=== PATIENT | male | born 1975 | race Caucasian/White ===

== ENCOUNTER 2019-03-03 15:38 | Emergency (ER) | payer BC, SELFPAY ==
[2019-03-03 15:53] VITALS: BP 105/57; PULSE 89; RESP 18; TEMP 37.1; O2SAT 98; BMI 24.4
[2019-03-03 16:07] LABS: UTC Influenza A Antigen Negative (Negative); UTC Influenza B Antigen Negative (Negative); UTC Strep Screen (Rapid) Negative (Negative)
--- NOTE | 2019-03-03 16:07 | HMH.EDUTC ---
[facility] [place] Disposition Clinical Impression: At high risk for tick borne illness Disposition: Home, Self-Care Condition on Discharge: Good Instructions: How to Remove a Tick, DI for Fever (Symptom) -- Adult, DI for Lyme Disease, Lyme Disease, Doxycycline Additional Instructions: Take antibiotics as prescribed for length of time prescribed *Watch bite area for what is called bullseye rash which has red area in the center with white surrounding venetie ira like area surrounded by another red area that looks like a bullseye *if you go out in the [place] or high weeds make sure to spray shoes and pant legs to help prevent further tick bites *Make sure to check yourself well for ticks when coming in from the [place] Return if needed Follow up with family doctor if no improvement or any worsening of symptoms Straight to ER if any life threatening of symptom Make sure that you are drinking plenty of fluids and get plenty of rest over the next couple days Prescriptions: Doxycycline Monohydrate [Doxycycline [place] 100mg Tab] 100 mg PO BID 10 Days #20 tab Referrals: Archie Chapman MD [Primary Care Provider] - Forms: Work/School Release Time of Disposition: 16:37 Medical Decision Making - Yossi Inquiry Pt receiving controlled substance: No Yossi was queried for this patient: No Vital Signs: 03/03/19 15:53 Temperature 98.7 F Temperature Source Oral Pulse Rate [Right Apical] 89 Respiratory Rate 18 Blood Pressure [Right Arm] 105/57 L Blood Pressure Mean [Right Arm] 73 02 Sat by Pulse Oximetry 98 Oxygen Delivery Method Room Air - Lab Data Lab results reviewed: Yes: I reviewed the patient's lab results. [facility] HPI - General Stated complaint: Possible flu,or tick bite Time Seen by Provider: 03/03/19 16:07 Mode of Arrival: Ambulatory Source of Information: Patient Limitations: No Limitations Description of Symptoms (Recalled from Triage Doc. by RN): PT C/O FEVER, CHILLS AND NAUSEA HEENT Symptoms (Recalled from RN notes): No Resp Symptoms (Recalled from RN notes): No Skin Symptoms (Recalled from RN notes): No MS Symptoms (Recalled from RN notes): No Functional Status (Recalled from RN notes): N/A - History of Present Illness Provider Complaint: Patient complaining of flu like symptoms fever, chills, body aches and sore throat State that he got 2 ticks off of him last Sunday but hasn't had any swelling or rash of tick bite sites State that he does have small red raised area on his left buttock area where he removed one of the ticks. State that on Sunday he started having fever, chills, sore throat and over all feeling bad States that he has continued to get worse State that fever has been as high as 102.0 - Related Data Previous Rx's Medication Instructions Recorded Doxycycline Monohydrate 100 mg PO BID 10 Days #20 tab 03/03/19 [Doxycycline Adair 100mg Tab] Allergies Allergy/AdvReac Type Severity Reaction Status Date / Time No Known Allergies Allergy Verified 03/03/19 15:55 - Worker's Comp Is this a Worker's Comp case?: No [facility] History - Hepatitis A Screen Drug use history?: No High risk sexual behaviors?: No History of sexually transmitted infection?: No Currently employed?: No Childcare worker?: No Do you have indoor plumbing?: Yes Do you have electricity?: Yes Attestation statement:: This patient has been screened for Hepatitis A risk factors. I have reviewed the patient's past medical history: Yes - Social History Alcohol Intake: never Occupational Status: employed - Psychiatric History Expresses thoughts of harming self/others: None Suicide Plan Description: No Plan ROS Obtained: Yes All systems reviewed & no additional complaints, Yes Systems reviewed as appropriate & no additional complaints - Constitutional Constitutional: Reports body ache, Reports chills, Reports fatigue, Reports fever(s), Reports headache(s) - Gastrointestinal Gastrointestingal: Reports: nausea Physical
--- NOTE | 2019-03-03 16:21 | ED_ITS ---
[facility] [place] Disposition Clinical Impression: At high risk for tick borne illness Disposition: Home, Self-Care Condition on Discharge: Good Instructions: How to Remove a Tick, DI for Fever (Symptom) -- Adult, DI for Lyme Disease, Lyme Disease, Doxycycline Additional Instructions: Take antibiotics as prescribed for length of time prescribed *Watch bite area for what is called bullseye rash which has red area in the center with white surrounding cachil dehe like area surrounded by another red area that looks like a bullseye *if you go out in the [place] or high weeds make sure to spray shoes and pant legs to help prevent further tick bites *Make sure to check yourself well for ticks when coming in from the [place] Return if needed Follow up with family doctor if no improvement or any worsening of symptoms Straight to ER if any life threatening of symptom Make sure that you are drinking plenty of fluids and get plenty of rest over the next couple days Prescriptions: Doxycycline Monohydrate [Doxycycline [place] 100mg Tab] 100 mg PO BID 10 Days #20 tab Referrals: Archie Chapman MD [Primary Care Provider] - Forms: Work/School Release Time of Disposition: 16:37 Medical Decision Making - Yossi Inquiry Pt receiving controlled substance: No Yossi was queried for this patient: No Vital Signs: 03/03/19 15:53 Temperature 98.7 F Temperature Source Oral Pulse Rate [Right Apical] 89 Respiratory Rate 18 Blood Pressure [Right Arm] 105/57 L Blood Pressure Mean [Right Arm] 73 02 Sat by Pulse Oximetry 98 Oxygen Delivery Method Room Air - Lab Data Lab results reviewed: Yes: I reviewed the patient's lab results. [facility] [place] HPI - General Stated complaint: Possible flu,or tick bite Time Seen by Provider: 03/03/19 16:07 Mode of Arrival: Ambulatory Source of Information: Patient Limitations: No Limitations Description of Symptoms (Recalled from Triage Doc. by RN): PT C/O FEVER, CHILLS AND NAUSEA HEENT Symptoms (Recalled from RN notes): No Resp Symptoms (Recalled from RN notes): No Skin Symptoms (Recalled from RN notes): No MS Symptoms (Recalled from RN notes): No Functional Status (Recalled from RN notes): N/A - History of Present Illness Provider Complaint: Patient complaining of flu like symptoms fever, chills, body aches and sore throat State that he got 2 ticks off of him last Sunday but hasn't had any swelling or rash of tick bite sites State that he does have small red raised area on his left buttock area where he removed one of the ticks. State that on Sunday he started having fever, chills, sore throat and over all feeling bad States that he has continued to get worse State that fever has been as high as 102.0 - Related Data Previous Rx's Medication Instructions Recorded Doxycycline Monohydrate 100 mg PO BID 10 Days #20 tab 03/03/19 [Doxycycline [place] 100mg Tab] Allergies Allergy/AdvReac Type Severity Reaction Status Date / Time No Known Allergies Allergy Verified 03/03/19 15:55 - Worker's Comp Is this a Worker's Comp case?: No [facility] History - Hepatitis A Screen Drug use history?: No High risk sexual behaviors?: No History of sexually transmitted infection?: No Currently employed?: No Childcare worker?: No Do you have indoor plumbing?: Yes Do you have electricity
[2019-03-03 16:38] VITALS: BP 126/66; PULSE 65; RESP 18; TEMP 36.6; O2SAT 100
== END 2019-03-03 16:41 | disposition home or self-care (01) ==
PROVIDERS: Emergency Provider Nurse Practitioner; PCP Family Medicine
DX: S30.860A Insect bite (nonvenomous) of lower back and pelvis, initial encounter (principal)
CPT/HCPCS: 87804; 87880; 99201; 99202

== ENCOUNTER → 2020-02-19 08:19 | Outpatient (CLI) | payer BC, SELFPAY ==
--- NOTE | 2020-02-19 08:29 | US_ITS ---
PROCEDURE: US ABDOMEN LIMITED CLINICAL INDICATION: ABD PAIN Right upper quadrant pain, right-sided pain COMPARISON: No exams were available for comparison FINDINGS: PANCREAS: Pancreas is slightly hypoechoic. This is nonspecific but could be seen with edema LIVER: No focal liver lesions demonstrated. Homogeneous echogenicity. No intrahepatic biliary ductal dilatation evident. There is appropriate direction of blood flow within a non dilated portal vein RIGHT KIDNEY: Unremarkable. Normal size and echogenicity. No hydronephrosis GALLBLADDER: The gallbladder is distended with echogenic layering material consistent with sludge with numerous punctate foci increased echogenicity and could be due to small tiny stones within the sludge. No gallbladder wall thickening or pericholecystic fluid. Common bile duct is normal at 4 mm. IMPRESSION: Echogenic sludge with possible tiny stones with distended gallbladder Somewhat decreased echogenicity of the pancreas which is nonspecific but could be seen with edema/inflammation Dictated by: Allen Galvan MD 02/19/2020 10:25 Electronically signed by Allen Galvan MD in [place] 02/19/2020 10:25
== END ==
PROVIDERS: PCP Family Medicine; Visit Provider Family Medicine
DX: R10.33 Periumbilical pain (principal)
CPT/HCPCS: 76705

== ENCOUNTER → 2020-04-08 08:02 | Outpatient (CLI) | payer BC, SELFPAY ==
[2020-04-08 08:31] LABS: Basophils % 0.9 % (0.1-2.0); Eosinophils # 0.1 K/mm3 (0.0-0.4); Eosinophils % 1.5 % (0.1-12.0); Hemoglobin 14.2 g/dL (14.1-18.0); Lymphocytes # 2.3 K/mm3 (0.7-4.5); Lymphocytes % 47.5 % (10-50); Mean Corpuscular HGB Conc 35.4 g/dL (31.8-35.4); Mean Corpuscular Hemoglobin 31.6 pg (27.0-31.2); Mean Corpuscular Volume 89.4 fl (80-94); Mean Platelet Volume 8.3 fl (7.4-10.4); Monocytes # 0.3 K/mm3 (0.1-1.0); Monocytes % 5.2 % (1.7-9.3); Neutrophils # 2.1 K/mm3 (1.8-7.8); Neutrophils % 44.9 % (37.0-80.0); Platelet Count 211 K/mm3 (142-424); Red Blood Count 4.48 M/mm3 (4.60-6.20); Red Cell Distribution Width 13.4 % (11.5-17.5); White Blood Count 4.8 K/mm3 (4.8-10.8)
[2020-04-08 08:59] LABS: Chloride 104 mmol/L (98-107); Sodium 141 mmol/L (136-145)
[2020-04-08 09:00] LABS: Potassium 4.1 mmoL/L (3.5-5.1)
[2020-04-08 09:02] LABS: Alanine Aminotransferase 24 U/L (12-78); Alkaline Phosphatase 54 U/L (38-126); Amylase 70 U/L (30-110); Anion Gap 10.1 mEq/L (5-15); Aspartate Amino Transferase 25 U/L (17-59); Bilirubin,Total 0.7 mg/dl (0.2-1.3); Blood Urea Nitrogen 11 mg/dl (9-20); Carbon Dioxide 31 mmol/L (22.0-30.0); Estimated Glomerular Filt Rate 81 ml/min (>60); GFR (African American) 98 ML/MIN (>60); Glucose 101 mg/dl (74-100)
[2020-04-08 09:03] LABS: Albumin Level 4.5 g/dl (3.5-5.0); Albumin/Globulin Ratio 1.7 (1.1-1.8); Globulin 2.6 g/dL (1.3-3.2); Lipase 61 U/L (23-300); Total Protein,Serum 7.1 g/dl (6.3-8.2)
[2020-04-08 10:13] LABS: Coronavirus 19 IgG Antibody Negative (Negative); Coronavirus 19 IgM Antibody Negative (Negative)
== END ==
PROVIDERS: Visit Provider Surgery
DX: Z01.818 Encounter for other preprocedural examination (principal); K80.10 Calculus of gallbladder with chronic cholecystitis without obstruction
CPT/HCPCS: 36415; 80053; 82150; 83690; 85025; 86328

== ENCOUNTER 2020-04-09 06:07 | Day surgery (SDC) | payer BC, SELFPAY ==
--- NOTE | 2020-04-07 09:20 | SUR.PREOP ---
04/07/2020 @ 2333--PHONE CALL MADE TO PATIENT. PATIENT UNDERSTANDS THAT LAB WORK AND COVID TESTING NEEDS TO BE COMPLETED @ 0800 ON 04/08/2020. PATIENT UNDERSTANDS IF LAB WORK AND COVID-19 TESTS ARE NOT COMPLETED BY 12PM ON THAT DATE, THE SURGERY SCHEDULED WILL BE CANCELLED AND RESCHEDULED FOR ANOTHER TIME.
[2020-04-08 08:14] VITALS: BMI 24.4
[2020-04-09] VITALS (12 sets, daily range): BP systolic 92–137; BP diastolic 31–84; PULSE 42–54; RESP 16–18; TEMP 36.2–43; O2SAT 94–100
--- NOTE | 2020-04-09 08:28 | P.OP_ITS ---
Date of procedure: 04/09/20 Pre-op Diagnosis:: Chronic calculus cholecystitis Post-op Diagnosis:: Same Procedure performed:: Laparoscopic cholecystectomy Surgeon:: Tunde Madera MD JUDICIAL ADMINISTRATIVE ASSISTANT:: Israel Bang Anesthesia: GERALD Estimated blood loss (mL): 10 Operative findings:: Gallbladder distention and fairly significant pericholecystic fat stranding Significant infundibular thickening Operative note:: After informed consent was obtained, the patient was taken to the operating room and placed in the supine position. General anesthesia was induced and the abdomen was prepped and draped in a sterile fashion. After infiltration with local anesthetic an infraumbilical incision was made. A Veress needle was placed in position. The abdomen was insufflated. A 5 mm optical trocar was placed in position. Under direct visualization, a 12 mm trocar was placed in the subxiphoid position and 2 additional 5 mm trocars were placed in the right upper quadrant. The gallbladder was elevated up and over the liver margin. The tissue around the cystic duct was carefully dissected. 3 clips were placed proximally and the duct was transected with harmonic dieudonne. Harmonic dieudonne were then utilized to dissect the gallbladder away from the liver margin with careful attention to the control of the cystic artery. The gallbladder was placed in a retrieval bag and removed through the subxiphoid trocar site. The right upper quadrant was thoroughly irrigated. No active bleeding or bile leak was noted. Fascia at the subxiphoid trocar site was reapproximated utilizing 0 Ethibond. The remaining trocars were removed. All wounds were irrigated and skin was closed with 4-0 Monocryl in a subcuticular fashion. Steri-Strips were applied. The patient's anesthetic agents were reversed and extubation was completed prior to transfer to recovery in stable condition. Condition: stable Disposition: PACU Specimens:: Gallbladder Complications:: No immediate
--- NOTE | 2020-04-09 08:36 | HMH.ANESCL ---
[facility] Anesthesia Checklist - Patient Identification Patient Identification: Arm Band - Structural Data Admitted From: Home Planned Operative Procedure/s: laparoscopic cholecystectomy Consent for Planned Operative Procedure(s) Verified: Yes Verified Documents: Surgical Consent, History and Physical - NPO Status Verified Time NPO: 00:00 - Additional verifications Anesthesia Reactions: No Hx Blood Transfusions: No Blood Transfusion Reaction: No - Airway Assessment C-Spine Mobility Assessed: Yes (mp2) TMJ Mobility Assessed: Yes Dentition: Good Dentition - Neurological Assessment Level of Consciousness: Awake, Alert - Anesthesia Plan Anesthesia Risk discussed: Yes Anesthesia Plan: Verified ASA Class: I Anesthesia Type: General [facility] History I have reviewed the patient's past medical history: Yes Medical History: Denies:: Cancer, Diabetes Mellitus Type 1, Diabetes Mellitus Type 2, Internal Pacemaker, MRSA, Seizures *Have you ever received a pneumonia vaccine?: No *Have you received a flu vaccine this season?: No Other Medical History: Denies: Blood Transfusion Reaction Anesthesia experience/problems:: nac Laterality Cases: Bilateral: Tonsillectomy Other Surgeries: Yes: Hernia Repair, Other. No: Pacemaker Amputation: No Fractures: Yes - *Social History Smoking Status: Former smoker Alcohol Intake: never Alcohol Intake Frequency:: holidays/special occasions only Substance Use Type: denies use *Occupational Status:: employed Housing: house Household Members: spouse *Travel in the last 8 weeks: None Family Hx:: No significant family history
--- NOTE | 2020-04-09 08:37 | P.PN_ITS ---
[facility] Anesthesia Record Part I Intake, IV Amount: 1,200 Estimated blood loss (mL): 10 Urine output (mL): 0 Blood Pressure: 137/73 SaO2: 94 Pulse Rate: 47 Respiratory Rate: 16 Temperature: 97.7 F Patient is:: Drowsy, Stable Stable to PACU at:: 08:30
--- NOTE | 2020-04-09 13:49 | P.PN_ITS ---
[facility] Anesthesia Record Part II Discharge Time: 09:00 Destination: Surgical Day Care (OP Surgery) PACU nurse assessment reviewed?: Yes Patient Condition:: Good Anesthesia Complications:: None Swallowing reflex intact?: Yes Cyanosis?: No Blood Pressure: 111/70 Pulse Rate: 46 Temperature: 97.7 F Mental Status: Alert & Oriented Pain level:: 0 Nausea and/or vomitting:: None Intake, IV Amount: 0
== END 2020-04-09 10:03 | disposition home or self-care (01) ==
PROVIDERS: PCP Family Medicine; Visit Provider Surgery
PROC: 0FT44ZZ Resection of Gallbladder, Percutaneous Endoscopic Approach (ICD-10-PCS; CPT 47562; principal; 2020-04-09 07:30)
DX: K80.10 Calculus of gallbladder with chronic cholecystitis without obstruction (principal); Z90.89 Acquired absence of other organs
CPT/HCPCS: 47562; 96374; J2405; J2710

== ENCOUNTER → 2021-04-13 07:53 | Outpatient (CLI) | payer BC, SELFPAY | PROVIDERS: Visit Provider Internal Medicine Gastroenterology | DX: Z20.822 Contact with and (suspected) exposure to COVID-19 (principal) | CPT/HCPCS: U0003 ==

== ENCOUNTER 2021-04-15 07:33 | Day surgery (SDC) | payer BC, SELFPAY ==
[2021-04-06 13:20] VITALS: BMI 24.4
[2021-04-15] VITALS (7 sets, daily range): BP systolic 96–130; BP diastolic 48–68; PULSE 51–69; RESP 18; TEMP 36.2–36.8; O2SAT 97–100
--- NOTE | 2021-04-15 07:50 | P.PN_ITS ---
[facility] Anesthesia Checklist - Patient Identification Patient Identification: Arm Band - Structural Data Admitted From: Home Planned Operative Procedure/s: Colonoscopy Consent for Planned Operative Procedure(s) Verified: Yes - NPO Status Verified Time NPO: 00:00 - Additional verifications Anesthesia Reactions: No Hx Blood Transfusions: No Blood Transfusion Reaction: No - Airway Assessment C-Spine Mobility Assessed: Yes TMJ Mobility Assessed: Yes Dentition: Good Dentition - Neurological Assessment Level of Consciousness: Awake - Anesthesia Plan Anesthesia Risk discussed: Yes Anesthesia Plan: Verified ASA Class: II Anesthesia Type: MAC [facility] History I have reviewed the patient's past medical history: Yes Medical History: Reports:: Cancer (melanoma back) Denies:: Diabetes Mellitus Type 1, Diabetes Mellitus Type 2, Internal Pacemaker, MRSA, Seizures *Have you ever received a pneumonia vaccine?: No *Have you received a flu vaccine this season?: No Other Medical History: Denies: Blood Transfusion Reaction Anesthesia experience/problems:: None Laterality Cases: Bilateral: Tonsillectomy Other Surgeries: Yes: Cholecystectomy, Hernia Repair, Other. No: Pacemaker Amputation: No Fractures: Yes - *Social History Last grade of school completed: High school graduate Smoking Status: Current every day smoker Tobacco Type: smokeless tobacco # Packs/Day (cigarettes): 1 Alcohol Intake: current Alcohol Intake Frequency:: holidays/special occasions only Substance Use Type: denies use *Occupational Status:: employed Housing: house Household Members: spouse, children *Travel in the last 8 weeks: None Family Hx:: No significant family history
--- NOTE | 2021-04-15 08:19 | HMH.PROC ---
[facility] Procedure Note Procedure Note:: Colonoscopy Procedure Report: Colonoscopy with cold biopsies Endoscopist: Yinka Stevens II, MD Referring physician: Archie Chapman MD Date of Procedure: April 15, 2021 Equipment: Olympus 190 variable stiffness pediatric colonoscope Sedation: MAC sedation Indication: Mr. Faith is a 45-year-old gentleman who is here for diagnostic colonoscopy secondary to a change in bowel habits. The patient does state that since his laparoscopic cholecystectomy (for gallstones) in April 2020, he has had intermittent diarrhea with bowel urgency and frequency. He does state that the stool is often bile/yellow-colored. He does have urgency with fecal incontinence 1 or 2 times monthly. He does state that sometimes he will have incomplete defecation. He has recently taken cholestyramine but not daily. He reports no gassiness or bloating. He reports no abdominal pain, weight loss, mucus with his bowel movements or rectal bleeding. He reports no family history of colitis, Crohn's disease or colon cancer. This is his first colonoscopy. Procedure: Prior to the procedure, a history and physical exam was performed, and patient's medications and allergies were reviewed. The risks, benefits and alternatives of the sedation and procedure were discussed with the patient. All questions were answered and informed consent was obtained. The patient was brought to the procedure room. Patient identification and proposed procedure were verified by the physician and the nurse. The patient was placed in a left lateral decubitus position and the scope was passed under direct vision. Throughout the procedure, the patient's blood pressure, pulse, and oxygen saturations were monitored continuously. The colonoscopy was accomplished without difficulty. The patient tolerated the procedure well. Findings: On digital rectal examination there was normal rectal tone. There were no external hemorrhoids. The prostate was 2+, smooth, soft, symmetric without nodules. The colonoscope was introduced through the anal canal to the rectum and advanced to the cecum. The ileocecal valve and appendiceal orifice were identified. The scope was advanced a short distance into the ileum which appeared grossly normal. The scope was then withdrawn into the colon. The cecum, ascending, transverse, descending, sigmoid and rectum were grossly normal. Cold biopsies were obtained from the right colon randomly to rule out microscopic colitis. There were no mucosal abnormalities identified. Upon retroflexion within the rectum there were grade 1-2 internal hemorrhoids.The preparation was excellent throughout with [place] Preparation Score of 9. The cecal time was 11 minutes. Impression: 1. Normal colonoscopy with intubation of the terminal ileum 2. Grade 1-2 internal hemorrhoids Plan: I will follow-up the biopsies to rule out microscopic colitis. I suspect that the patient does have some gallbladder (cholerrheic) diarrhea. I also feel that he has some IBS diarrhea. I would consider dietary measures and fiber bulk. I might switch him over to Colestid 1 to 2 g p.o. nightly.
== END 2021-04-15 09:30 | disposition home or self-care (01) ==
PROVIDERS: PCP Family Medicine; Visit Provider Internal Medicine Gastroenterology
PROC: 0DJD8ZZ Inspection of Lower Intestinal Tract, Via Natural or Artificial Opening Endoscopic (ICD-10-PCS; CPT 45378; principal; 2021-04-15 08:30)
DX: K58.0 Irritable bowel syndrome with diarrhea (principal); K64.1 Second degree hemorrhoids
CPT/HCPCS: 45380

== ENCOUNTER 2024-04-30 13:44 | Outpatient (CLI) | payer OTHER, SELFPAY ==
--- NOTE | 2024-04-30 13:51 | XR_ITS ---
FINAL REPORT CLINICAL HISTORY: right elbow work injury FINDINGS: Three views of the right elbow were obtained. There is no acute fracture or dislocation. The joint space appears normal. No acute soft tissue abnormality is identified. IMPRESSION: Unremarkable exam. Reviewed, Interpreted and Dictated by Brittanie Renee MD Transcribed by Nubia Kruger Authenticated and [facility]
== END 2024-04-30 23:59 | disposition home or self-care (01) ==
PROVIDERS: PCP Family Medicine; Visit Provider Nurse Practitioner Family
DX: M25.521 Pain in right elbow (principal); S59.901A Unspecified injury of right elbow, initial encounter
CPT/HCPCS: 73080